=== PATIENT | female | born 1960 | race Caucasian/White ===

== ENCOUNTER → 2022-07-30 | Outpatient (CLI) | payer BC ==
[~2022-07-30] MED LIST: METH5TAB PO; MTP25TSR PO; NAPR-243 PO; PANT40SU PO
[2022-07-30 10:33] VITALS: BP 195/77
--- NOTE | 2022-07-31 08:06 | Cardiology Stress Test Report ---
TREADMILL STRESS TEST Date of procedure: 07/30/2022. Primary care provider: Shaila Bennett MD. Admitting physician: Ambrosio Maher Jr., MD. INDICATION: Chest pain. BASELINE ELECTROCARDIOGRAM: Sinus rhythm, normal tracing. STRESS TEST PROCEDURE: The patient was exercised for a total of 1 minutes and 42 seconds of the standard Walt protocol achieving a maximum MET level of 3. The resting heart rate was 60 bpm and the peak heart rate was 117 bpm, which represents 74% of the maximum predicted heart rate. The resting blood pressure was 150/105 mmHg and the peak blood pressure was 236/97 mmHg. This represents a suboptimal heart rate and a hypertensive blood pressure response to exercise with resting hypertension. The test was stopped due to knee pain. There was no chest discomfort during the test. There were no arrhythmias during the test. There was approximately [address] depression in the inferior leads during stress that persisted into recovery. The patient exhibited poor exercise capacity for age. IMPRESSION: 1. Suboptimal heart rate and a hypertensive blood pressure response to exercise with resting hypertension. 2. There was no chest discomfort or arrhythmias during the test. 3. There were borderline exercise-induced electrocardiogram changes. 4. The patient exhibited poor exercise capacity for age at 1 minute and 42 seconds of the Walt protocol. 5. This is an inconclusive study due to inadequate heart rate response although at the suboptimal heart rate, the patient did start to develop some ST changes during the test. Certain portions of this document may have been dictated utilizing voice recognition technology. Inherent to this technology, typographical and grammatical errors may exist. As much as I am diligent to identify and correct these mistakes, some errors may remain in the document. AMBROSIO MAHER JR, MD Jul 31, 2022 08:06
== END ==
LOC: CARD 08:22
PROVIDERS: ATTEND Internal Medicine Cardiovascular Disease
DX: I35.0 Nonrheumatic aortic (valve) stenosis (principal); I51.7 Cardiomegaly
CPT/HCPCS: 93017; 93306